=== PATIENT | female | born 1990 | race Caucasian/White ===

== ENCOUNTER 2024-04-08 13:01 | Emergency (ER) | payer MEDICARE, MEDICAID, SELFPAY ==
[2024-04-08 13:05] VITALS: BP 106/69; PULSE 78; RESP 17; TEMP 36.8; O2SAT 96; BMI 19.3
[2024-04-08 13:56] LABS: Basophils # 0.1 10^3/uL (0.0-0.1); Basophils % 0.6 %; Eosinophils # 0.2 10^3/uL (0.0-0.8); Eosinophils % 1.9 %; Lymphocytes % 25.2 %; Mean Corpuscular HGB Conc 33.5 g/dL (30-55); Mean Corpuscular Hemoglobin 29.6 pg (27-33); Mean Corpuscular Volume 88.3 fl (85-98); Mean Platelet Volume 10.6 fL (7.4-10.4); Monocytes # 0.7 10^3/uL (0.2-0.9); Monocytes % 8.3 %; Neutrophils # 5.04 10^3/uL (1.8-7.7); Neutrophils % 63.7 %; Nucleated Red Blood Cells % 0 %; Platelet Count 284 10^3/cmm (157-399); Red Blood Count 4.87 10^6/uL (3.85-5.65); Red Cell Distribution Width 12.7 % (12.1-15.1); White Blood Count 7.91 10^3/uL (3.29-11.43)
--- NOTE | 2024-04-08 14:11 | ED_ITS ---
HPI - Female Genitourinary 2 General: Chief complaint: Vaginal Bleeding Stated complaint: Preg spotting Time Seen by Provider: 04/08/24 14:07 Source: patient Mode of arrival: ambulatory Limitations: no limitations History of Present Illness: 34-year-old female states she is concern ed she may be having a miscarriage. States she is roughly 1 to 2 weeks late for her menstruation and had a home positive test 1 week ago has not seen anyone. States that started today she has had some spotting. She denies any heavy bleeding or passing clots she denies any abdominal pain or dysuria or vomiting. Associated symptoms: Deny abdominal pain, headache(s) or nausea Review of Systems 2 Const: Denies: fever(s), chills, body aches or change in appetite ENMT: Denies: throat pain or dental pain Card: Denies: chest pain Resp: Denies: dyspnea GI: Denies: abdominal pain, nausea, vomiting or diarrhea : Reports: vaginal bleeding; Denies: dysuria Musc: Denies: neck pain or back pain Skin/Breast: Denies: rash Neuro: Denies: headache(s) Physical Exam 2 Const: COMMON NORMALS: no acute distress, patient oriented x3 and healthy appearing HENMT: COMMON NORMALS: normocephalic and atraumatic HEAD & SCALP: n ormocephalic and atraumatic Neck/C-Spine: COMMON NORMALS: full ROM and supple Chest: COMMONS NORMALS: normal inspection of the chest Resp: COMMON NORMALS: normal respiratory effort GI: COMMON NORMALS: Normal to inspection, nondistended, normoactive bowel sounds present, Soft to palpation, non-tender and no masses PALPATION: Yes Soft to palpation Extremity: COMMON NORMALS: normal to inspection and full ROM Neuro: COMMON NORMALS: patient oriented x3, moves all extremities and no focal motor deficits Psych: COMMON NORMALS: mental status grossly normal, Normal thought process present and cooperative THOUGHT PROCESS: Normal thought process present Skin: COMMON NORMALS: no rashes or lesions noted and no wounds GENERAL SKIN EXAM: no rashes or lesions noted Course 2 Vital Signs: Vital signs: Vital Signs Temperature 98.2 F 04/08/24 13:05 Pulse Rate 78 04/08/24 13:05 Respiratory Rate 17 04/08/24 13:05 Blood Pressure 106/69 04/08/24 13:05 Pulse Oximetry 96 04/08/24 13:05 Oxygen Delivery Me thod Room Air 04/08/24 13:05 MDM - Female Medical Decision Making Patient presents here with a threatened miscarriage her ultrasound here showed an IUP she had minimal bleeding her exam is benign she stable for discharge we will get her follow-up with OB she return if worsening she understands agrees to plan Medical Records I reviewed the patient's medical records. Lab Data I reviewed the patient's lab results. 04/08/24 13:45 Radiology Impressions Obstetrics Ultrasound 04/08/24 14:32 IMPRESSION: 1. Single intrauterine gestation of 6w5d with an EDC of 11/27/2024. 2. Normal early cardiac activity of the embryo. Laboratory Results WBC 7.91 10^3/uL (3.29-11.43) 04/08/24 13:45 RBC 4.87 10^6/uL (3.85-5.65) 04/08/24 13:45 Hgb 14.40 g/dL (11.27-16.99) 04/08/24 13:45 Hct 43.0 % (36-47) 04/08/24 13:45 MCV 88.3 fl (85-98) 04/08/24 13:45 MCH 29.6 pg (27-33) 04/08/24 13:45 MCHC 33.5 g/dL (30-55) 04/08/24 13:45 RDW 12.7 % (12.1-15.1) 04/08/24 13:45 Plt Count 284 10^3/cmm (157-399) 04/08/24 13:45 MPV 10.6 fL (7.4-10.4) H 04/08/24 13:45 Neut % (Auto) 63.7 % 04/08/24 13:45 Lymph % (Auto) 25.2 % 04/08/24 13:45 [place] % (Auto) 8.3 % 04/08/24 13:45 Eos % (Auto) 1.9 % 04/08/24 13:45 Baso % (Auto) 0.6 % 04/08/24 13:45 Neut # (Auto) 5.04 10^3/uL (1.8-7.7) 04/08/24 13:45 Lymph # (Auto) 2.0 10^3/uL (0.8-4.8) 04/08/24 13:45 [place] # (Auto) 0.7 10^3/uL (0.2-0.9) 04/08/24 13:45 Eos # (Auto) 0.2 10^3/uL (0.0-0.8) 04/08/24 13:45 Baso # (Auto) 0.1 10^3/uL (0.0-0.1) 04/08/24 13:45 Nucleated RBC % (auto) 0 % 04/08/24 13:45 Nucleated RBCs # 0.0 /100WBC 04/08/24 13:45 Ser , Semi-Qnt 73701.00 mIU/mL 04/08/24 13:45 Blood Type O Positive 04/08/24 13:45 Rho(D) Type Rh positive 04/08/24 13:45 Antibody Screen Negative 04/08/24 13:45 All radiology interpretation(s) finalized by discharge Discharge Plan Discharge Patient Disposition: Home Clinical Impression: Threatened miscarriage Condition: Stable Discharge Orders: Discharge ED (Routine); Ordered 04/08/24 Ordered By: Fauzia Hollins Referrals: Vaughn Ramirez MD [Physician] - 1-3 days Discharge Diet: Advance as tolerated Discharge Activity: Resume usual activity Patient Instructions: Threatened Miscarriage (ED) Coding Level of Care Code ED Medicare Insurance Specialist for Sarah Borges
--- NOTE | 2024-04-08 14:32 | US_ITS ---
WS: [id number] EARLY OBSTETRICAL ULTRASOUND (<14 WEEKS). HISTORY: threatened miscarriage COMPARISON: None available. Single intrauterine gestational sac is identified. Cardiac activity at 112 BPM. Climax-rump length kelsey sures 0.8 cm which corresponds to a gestation of 6w5d. Normal-appearing yolk sac and amnion demonstra lo. Small subchorionic hemorrhage adjacent to the gestational sac. Subchorionic hemorrhage. No free fluid. Normal size ovaries with no mass. US/US OB <=14 wk fetus w transvag IMPRESSION: 1. Single intrauterine gestation of 6w5d with an EDC of 11/27/2024. 2. Normal early cardiac activity of the embryo.
--- NOTE | 2024-04-08 15:36 | DCPLANNER ---
message sent to [facility] for er f/u
== END 2024-04-08 15:37 | disposition home or self-care (01) ==
PROVIDERS: Emergency Provider Emergency Medicine
DX: O20.0 Threatened abortion (principal); Z3A.01 Less than 8 weeks gestation of pregnancy
CPT/HCPCS: 76801; 76817; 84702; 85025; 86850; 86900; 99284